=== PATIENT | male | born 1990 | race Caucasian/White ===

== ENCOUNTER 2017-08-06 15:08 | Emergency (ER) | payer SELFPAY ==
[~2017-08-06] VITALS: Ht 170.2 cm; Wt 61.2 kg
[~2017-08-06 15:08] MED LIST: ACHD5005 PO; AMOX500C2 PO; HYDR-3454 PO; HYDR1TAB PO; TRAM-21 PO; TRM50T PO
--- OUTSIDE RECORDS SUMMARY | 2017-08-06 15:14 | XMS REPORT | Continuity of Care Document ---
Author Author [facility] Organization [facility] Address Unknown Phone Unavailable Allergies Active Description Code Type Severity Reaction Onset Reported/Identified Relationship to Patient Clinical Status Yes No known drug allergies ND N/A N/A Medications Problems Date Dx Coded Attending Type Code Diagnosis Diagnosed By 12/12/2008 558.9 OTHER AND UNSPECIFIED NONINFECTIOUS GASTROENTERITIS AND COLITIS 12/12/2008 JOSE L RYAN DO 558.9 OTHER AND UNSPECIFIED NONINFECTIOUS GASTROENTERITIS AND COLITIS 12/12/2008 TAMMI URRUTIA APRN 558.9 OTHER AND UNSPECIFIED NONINFECTIOUS GASTROENTERITIS AND COLITIS 01/23/2009 682.9 CELLULITIS AND ABSCESS OF UNSPECIFIED SITES 01/23/2009 JOSE L RYAN DO 682.9 CELLULITIS AND ABSCESS OF UNSPECIFIED SITES 01/23/2009 TAMMI URRUTIA APRN 682.9 CELLULITIS AND ABSCESS OF UNSPECIFIED SITES 07/05/2012 V69.2 HIGH-RISK SEXUAL BEHAVIOR 07/05/2012 JOSE L RYAN DO V69.2 HIGH-RISK SEXUAL BEHAVIOR 07/05/2012 TAMMI URRUTIA APRN V69.2 HIGH-RISK SEXUAL BEHAVIOR 12/29/2012 805.6 CLOSED FRACTURE OF SACRUM AND COCCYX WITHOUT SPINAL CORD INJURY 12/29/2012 JOSE L RYAN DO 805.6 CLOSED FRACTURE OF SACRUM AND COCCYX WITHOUT SPINAL CORD INJURY 12/29/2012 TAMMI URRUTIA APRN 805.6 CLOSED FRACTURE OF SACRUM AND COCCYX WITHOUT SPINAL CORD INJURY 09/23/2014 TAMMI URRUTIA APRN V74.5 STD SCREEN Procedures Code [place] [address] ROUTINE VENIPUNCTURE 09/23/2014 27641 SYPHILLIS-[facility] 09/23/2014 69510 HIV ([facility]) 09/23/2014 44569 HEP C ANTIBODY ([facility]) 09/23/2014 08772 GC/CHLAM URINE (STATE) 09/23/2014 Results Encounters ACCT No. Visit Date/Time Discharge Status Pt. Type Provider Facility Loc./Unit Complaint [id number] 09/30/2013 05:32:00 2012 05:54:00 DIS Emergency [id number] 12/27/2013 17:52:00 12/27/2013 17 :52:00 CAN Outpatient YINKA SNOWDEN [facility] VÍCTOR [id number] 09/23/2014 09:20:00 09/23/2014 23: 59:59 CLS Outpatient TAMMI URRUTIA APRN [id number] 2013 08:10:00 2013 23: 59:59 CLS Outpatient JOSE L RYAN DO [id number] 12/29/2012 14:00:00 12/29/2012 23: 59:59 CLS Outpatient
--- NOTE | 2017-08-06 15:25 | ED GU-Male ---
General Chief Complaint: Abdominal/GI Problems Stated Complaint: HERNIA Source: patient Exam Limitations: no limitations History of Present Illness Time seen by provider: 15:23 Initial Comments To ER with reports of possible hernia in the left groin. He first noticed this about 2 days ago and had been lifting but didn't feel anything in the way of bulging or pain or tearing sensation at the time. States that his girlfriend looked it up and reports that this might have been a hernia. Also, he would like to be tested for sexually transmitted diseases because he was recently with a girl who had a new diagnosis of herpes. He states that he has no dysuria , no genital sores or discharge. He does report that he has had some testicular tenderness stating "it felt like blue balls" but he currently denies any pain. Timing/Duration: just prior to arrival Severity/Quality: moderate Location: groin Radiation: none Activities at Onset: none Associated Symptoms: denies symptoms Allergies and Home Medications Allergies Coded Allergies: No Known Drug Allergies (Unverified Allergy, Mild, 04/05/09) Home Medications No Active Prescriptions or Reported Meds Constitutional: see HPI, No chills, No fever EENTM: see HPI Respiratory: no symptoms reported Cardiovascular: no symptoms reported Genitourinary: no symptoms reported Musculoskeletal: no symptoms reported Skin: see HPI Psychiatric/Neurological: No Symptoms Reported Endocrine: No Symptoms Reported Past Ymesrzj-Klxoqu-Avosrl Hx Patient Social History Recent Foreign Travel: No Contact w/Someone Who Travel: No Reproductive System Hx Reproductive Disorders: No Sexually Transmitted Disease: No Psychosocial Behavioral Health Disorders: ADD/ADHD Physical Exam Vital Signs Vital Sign - Last 12Hours 08/06/17 15:15 Temp 98.0 Pulse 56 Resp 18 B/P (MAP) 119/70 Pulse Ox 98 Capillary Refill : General Appearance: WD/WN, no apparent distress HEENT: PERRL/EOMI, normal ENT inspection Neck: non-tender, full range of motion Respiratory: no respiratory distress, no accessory muscle use Gastrointestinal: non tender, soft Male: normal genitalia, inguinal tenderness (2cm mobile tender lymph node. ) Extremities: normal range of motion, non-tender Neurologic/Psychiatric: alert, normal mood/affect, oriented x 3 Skin: normal color, warm/dry Progress/Results/Core Measures Results/Orders Lab Results Laboratory Tests Test 08/06/17 15:21 Range/Units Urine Color YELLOW Urine Clarity CLEAR Urine pH 7 5-9 Urine Specific [place] 1.010 L 1.016-1.022 Urine Protein NEGATIVE NEGATIVE Urine Glucose (UA) NEGATIVE NEGATIVE Urine Ketones NEGATIVE NEGATIVE Urine Nitrite NEGATIVE NEGATIVE Urine Bilirubin NEGATIVE NEGATIVE Urine Urobilinogen NORMAL NORMAL MG/DL Urine Leukocyte Esterase NEGATIVE NEGATIVE Urine RBC (Auto) NEGATIVE NEGATIVE Urine RBC NONE /HPF Urine WBC NONE /HPF Urine Squamous Epithelial Cells 0-2 /HPF Urine Crystals NONE /LPF Urine Bacteria NONE /HPF Urine Casts NONE /LPF Urine Mucus NEGATIVE /LPF Urine Culture Indicated NO My Orders Orders - LAMONTE GROVER APRN Ua Culture If Indicated (08/06/17 15:21) Us Soft Tissue Unlisted [id number] (08/06/17 15:21) Chlamydia Dna Urine Test (08/06/17 15:21) Vital Signs/I&O Vital Sign - Last 12Hours 08/06/17 15:15 Temp 98.0 Pulse 56 Resp 18 B/P (MAP) 119/70 Pulse Ox 98 Departure Communication (Admissions) Progress Notes I did discuss with the patient possibility of this representing an STD and that we would call him if the gonorrhea or chlamydia came back positive. Impression Impression: Primary Impression: Inguinal lymphadenopathy Disposition: 01 HOME, SELF-CARE Condition: Stable Departure-Patient Inst. Decision time for Depature: 16:14 Referrals: [facility] (PCP/Family) Primary Care Physician Patient Instructions: LYMPH NODE SWELLING Add. Discharge Instructions: All discharge instructions reviewed with patient and/or family. Voiced understanding. Scripts No Active Prescriptions or Reported Meds LAMONTE GROVER APRN Aug 06, 2017 15:25
[2017-08-06 15:30] LABS: BILIRUBIN,URINE NEGATIVE (NEGATIVE); KETONES,URINE NEGATIVE (NEGATIVE); LEUKOCYTE ESTERASE ,URINE NEGATIVE (NEGATIVE); NITRITE,URINE NEGATIVE (NEGATIVE); PH,URINE 7 (5-9); PROTEIN,URINE NEGATIVE (NEGATIVE); UROBILINOGEN,URINE NORMAL (NORMAL)
[2017-08-06 15:38] LABS: SQUAMOUS EPITHELIAL CELL,UR 0-2 /HPF
[2017-08-06 16:19] VITALS: BP 119/70
--- NOTE | 2017-08-06 16:48 | Diagnostic Imaging Report ---
EXAMINATION: Lower extremity soft tissue sonogram. INDICATION: Left groin lump. FINDINGS: Grayscale imaging of the left inguinal region demonstrates mild prominent lymph nodes in the left groin with the largest measuring 1.9 cm. IMPRESSION: Left inguinal lymphadenopathy. While the findings could be reactive in nature, consider reassessment if a persistent or progressive finding. Dictated by: Dictated on workstation # [id number]
[2017-08-09 15:53] LABS: CHLAMYDIA DNA URINE Not Detected (Not Detected)
[2017-08-09 16:15] LABS: NEISSERIA GONORRHEA DNA URINE Not Detected (Not Detected)
== END 2017-08-06 16:19 | disposition home or self-care (01) ==
LOC: EDUNIT# 15:08 → ER 15:10
DX: R59.0 Localized enlarged lymph nodes (principal); F90.9 Attention-deficit hyperactivity disorder, unspecified type
CPT/HCPCS: 36415; 76999; 81000; 87491; 87591; 99282

== ENCOUNTER 2019-07-14 01:16 | Emergency (ER) | payer MEDICAID, OTHER | END 2019-07-14 03:26 | disposition left against medical advice (07) | LOC: ER 01:16 ==

== ENCOUNTER 2019-11-17 22:03 | Emergency (ER) | payer MEDICAID ==
[~2019-11-17] VITALS: Ht 175 cm; Wt 81.0 kg
--- NOTE | 2019-11-17 22:36 | ED Integumentary General ---
General Chief Complaint: Skin/Wound Problems Stated Complaint: LUMP ON NECK, CONGESTION, COUGH Nursing Triage Note: PATIENT COMPLAINT OF ABSCESS ON LEFT NECK. STATES X4 DAYS OPENED TODAY. PATIENT STATES HE ALSO HAS A COUGH AND SORE THROAT Source: patient Exam Limitations: no limitations History of Present Illness Date Seen by Provider: Nov 17, 2019 Time Seen by Provider: 22:29 Initial Comments To ER with c/o abscess on left neck, opened and drained a few days ago at home, also sore throat and cough that is keeping him up at night. Severity: moderate Location: torso Associated Symptoms: sore throat Allergies and Home Medications Allergies Coded Allergies: No Known Drug Allergies (Unverified Allergy, Mild, 04/05/09) Home Medications No Active Prescriptions or Reported Meds Patient Home Medication List Home Medication List Reviewed: Yes Review of Systems Review of Systems Constitutional: see HPI EENTM: nose congestion, throat pain Respiratory: no symptoms reported Cardiovascular: no symptoms reported Genitourinary: no symptoms reported Musculoskeletal: no symptoms reported Skin: no symptoms reported Psychiatric/Neurological: No Symptoms Reported Endocrine: No Symptoms Reported Hematologic/Lymphatic: No Symptoms Reported Past Rtgfqnv-Ioqdwc-Tihzjg Hx Patient Social History Alcohol Use: Denies Use Alcohol Beverage of Choice: Whiskey Recreational Drug Use: Yes Drug of Choice: THC Smoking Status: Current Everyday Smoker Type Used: Cigarettes 2nd Hand Smoke Exposure: Yes Recent Foreign Travel: No Contact w/Someone Who Travel: No Recent Infectious Disease Expo: No Recent Hopitalizations: No Physical Abuse: No Sexual Abuse: No Mistreated: No Fear: No Immunizations Up To Date Tetanus Booster (TDap): Less than 5yrs Seasonal Allergies Seasonal Allergies: No Past Medical History Surgeries: No Respiratory: No Cardiac: No Neurological: No Reproductive Disorders: No Sexually Transmitted Disease: No Gastrointestinal: No Musculoskeletal: No Endocrine: No Cancer: No Psychosocial: Yes ADD/ADHD Integumentary: No Blood Disorders: No Family Medical History No Pertinent Family Hx Physical Exam Vital Signs Vital Signs - First Documented 11/17/19 22:13 Temp 36.7 Pulse 117 Resp 18 B/P (MAP) 112/82 (92) Pulse Ox 97 O2 Delivery Room Air Capillary Refill : Less Than 3 Seconds General Appearance: WD/WN, no apparent distress HEENT: PERRL/EOMI, normal ENT inspection Respiratory: no respiratory distress, no accessory muscle use Neurologic/Psychiatric: alert, normal mood/affect, oriented x 3 Skin: normal color, warm/dry Skin Problem Location: neck (Demeter area of erythema and induration to the inferior aspect of the mandible on the left.) Progress/Results/Core Measures Results/Orders Vital Signs/I&O 11/17/19 22:13 Temp 36.7 Pulse 117 Resp 18 B/P (MAP) 112/82 (92) Pulse Ox 97 O2 Delivery Room Air Blood Pressure Mean: 92 Departure Impression Primary Impression: Abscess Disposition: HOME, SELF-CARE Condition: Stable Departure-Patient Inst. Decision time for Depature: 22:37 Referrals: NO,LOCAL PHYSICIAN (PCP/Family) Primary Care Physician Patient Instructions: Cough in Adults, Skin Abscess Add. Discharge Instructions: 1. Antibiotics and cough medication as directed. Follow-up with your doctor next week All discharge instructions reviewed with patient and/or family. Voiced understanding. Scripts Doxycycline Hyclate (Doxycycline Hyclate) 100 Mg Tablet 100 MG PO BID, #14 TAB 0 Refills Prov: LAMONTE GROVER APRN 11/17/19 LAMONTE GROVER APRN Nov 17, 2019 22:36
[2019-11-17] MEDS ORDERED: DOXY100T2 PO (22:39)
[2019-11-17] MEDS ORDERED: RX-ACETAMINOPHEN/CODEINE TAB PPK #4 PO SCH (22:45)
[2019-11-17] MEDS ORDERED: DOXYCYCLINE 100 MG (VIBRAMYCIN) TABLET PO SCH (22:45)
[2019-11-17 22:46] VITALS: BP 112/82
== END 2019-11-17 22:47 | disposition home or self-care (01) ==
LOC: EDUNIT# 22:03 → ER 22:05
DX: L02.11 Cutaneous abscess of neck (principal); F17.210 Nicotine dependence, cigarettes, uncomplicated
CPT/HCPCS: 99283

== ENCOUNTER 2020-05-30 18:10 | Emergency (ER) | payer MEDICAID ==
[~2020-05-30] VITALS: Ht 175 cm; Wt 65.0 kg
[~2020-05-30 18:10] MED LIST changes: +DOXY100T2 PO
[2020-05-30] MEDS ORDERED: CEPH-507 PO (18:39)
--- NOTE | 2020-05-30 18:39 | ED Upper Extremity ---
General Chief Complaint: Upper Extremity Stated Complaint: L WRIST LAC Nursing Triage Note: THE PT IS AMBULATORY TO THE ROOM WITHOUT DIFFICULTY. NO DISTRESS IS SEEN ON ARRIVAL. LOC IS NORMAL FOR THE PT. THERE IS A 3.5 IN LACERATION TO THE LEFT WRIST. BLEEDING IS CONTROLLED ON ARRIVAL. Nursing Sepsis Screen: No Definite Risk Source: patient Exam Limitations: no limitations History of Present Illness Date Seen by Provider: May 30, 2020 Time Seen by Provider: 18:34 Initial Comments lac to volar left wrist. Was cutting a string on his backpack at 1200 when his knife slipped. Tetanus UTD. Onset: just prior to arrival Severity: moderate Pain/Injury Location: left wrist Method of Injury: unknown Modifying Factors: Worse With Movement Allergies and Home Medications Allergies Coded Allergies: No Known Drug Allergies (Unverified Allergy, Mild, 04/05/09) Home Medications Doxycycline Hyclate 100 Mg Tablet, 100 MG PO BID Prescribed by: LAMONTE GROVER on 11/17/19 7865 Patient Home Medication List Home Medication List Reviewed: Yes Review of Systems Constitutional: see HPI EENTM: see HPI Respiratory: no symptoms reported Cardiovascular: no symptoms reported Genitourinary: no symptoms reported Musculoskeletal: see HPI Skin: no symptoms reported Past Qpzfjwt-Imbani-Ncsfgy Hx Patient Social History Alcohol Beverage of Choice: Whiskey Drug of Choice: THC Type Used: Cigarettes 2nd Hand Smoke Exposure: Yes Recent Foreign Travel: No Contact w/Someone Who Travel: No Recent Infectious Disease Expo: No Recent Hopitalizations: No Physical Abuse: No Sexual Abuse: No Mistreated: No Fear: No Immunizations Up To Date Tetanus Booster (TDap): Less than 5yrs Seasonal Allergies Seasonal Allergies: No Past Medical History Surgeries: No Respiratory: No Cardiac: No Neurological: No Reproductive Disorders: No Sexually Transmitted Disease: No Gastrointestinal: No Musculoskeletal: No Endocrine: No Cancer: No Psychosocial: Yes ADD/ADHD Integumentary: No Blood Disorders: No Family Medical History No Pertinent Family Hx Physical Exam Vital Signs Vital Signs - First Documented 05/30/20 18:20 Temp 36.5 Pulse 80 Resp 16 B/P (MAP) 117/84 (95) Pulse Ox 97 Capillary Refill : Less Than 3 Seconds Height, Weight, BMI Height: 5'7.00" Weight: 127lbs. oz. 57.519406zl; 21.00 BMI Method:Stated General Appearance: WD/WN, no apparent distress Respiratory: no respiratory distress, no accessory muscle use Shoulder: normal inspection, non-tender Elbow/Forearm: normal inspection, non-tender, Left Wrist: Yes limited ROM (2.5cm lac to flexor tendons with partial laceration of one of the flexor tendons. He is able to flex the wrist and each finger individually. Reports tingling in the hand. this was anesthetized with 3ml of 1% lidocaine with epi, scrubbed with chlorxedine/saline and irrigated with same. Closed with 1 continuous suture size 5-0 prolene. Placed in a bandage and a volar wrist splint, will giuve follw up for ortho. ) Neurologic/Tendon: normal sensation, normal motor functions Neurologic/Psychiatric: alert, normal mood/affect, oriented x 3 Skin: normal color, warm/dry Progress/Results/Core Measures Results/Orders Vital Signs/I&O 05/30/20 18:20 Temp 36.5 Pulse 80 Resp 16 B/P (MAP) 117/84 (95) Pulse Ox 97 Blood Pressure Mean: 95 Departure Impression Primary Impression: Wrist laceration Qualified Codes: S61.512A - Laceration without foreign body of left wrist, initial encounter Disposition: HOME, SELF-CARE Condition: Stable Departure-Patient Inst. Decision time for Depature: 18:38 Referrals: NO,LOCAL PHYSICIAN (PCP) Primary Care Physician ELIUD ODONNELL MD, MICHAEL P MD Patient Instructions: Laceration Repair With Stitches (DC) Add. Discharge Instructions: return to er for suture removal in 10 days. Call one of the orthopedists for follow up on Monday. Keep the splint on at all times. Take the antibiotic as directed. Return to Er for any worsening. All discharge instructions reviewed with patient and/or family. Voiced understanding. Scripts Cephalexin (Keflex) 500 Mg Capsule 500 MG PO TID, #15 CAP Prov: LAMONTE GROVER APRN 05/30/20 LAMONTE GROVER APRN May 30, 2020 18:39
[2020-05-30 18:44] VITALS: BP 117/84
== END 2020-05-30 18:44 | disposition home or self-care (01) ==
LOC: EDUNIT# 18:10 → ER 18:12
DX: S61.512A Laceration without foreign body of left wrist, initial encounter (principal); Z77.22 Contact with and (suspected) exposure to environmental tobacco smoke (acute) (chronic); W26.0XXA Contact with knife, initial encounter

== ENCOUNTER 2020-10-14 20:33 | Emergency (ER) | payer MEDICAID ==
[~2020-10-14] VITALS: Ht 170 cm; Wt 65.0 kg
[~2020-10-14 20:33] MED LIST changes: +CEPH-507 PO
[2020-10-14 20:43] VITALS: BP 126/84
[2020-10-14] MEDS ORDERED: SULF1TAB35 PO (20:49)
--- NOTE | 2020-10-14 20:49 | ED Integumentary General ---
General Stated Complaint: POSS ABSCESS ON RIGHT ELBOW Source: patient Exam Limitations: no limitations History of Present Illness Date Seen by Provider: Oct 14, 2020 Time Seen by Provider: 20:43 Initial Comments Patient presents ER by private conveyance with chief complaint that today he woke up with a little red welt that was painful tender to the touch over his right elbow. He did not see any insect bite him. He suspects it was a spider bite. He took a couple doses of his girlfriends leftover antibiotics that she was using for a UTI and it did not make it go away. Allergies and Home Medications Allergies Coded Allergies: No Known Drug Allergies (Unverified Allergy, Mild, 04/05/09) Home Medications Cephalexin 500 Mg Capsule, 500 MG PO TID Prescribed by: LAMONTE GROVER on 05/30/201838 Doxycycline Hyclate 100 Mg Tablet, 100 MG PO BID Prescribed by: LAMONTE GROVER on 11/17/199 Patient Home Medication List Home Medication List Reviewed: Yes Review of Systems Review of Systems Constitutional: No chills, No diaphoresis EENTM: No ear discharge, No ear pain Respiratory: No cough, No short of breath Cardiovascular: No chest pain, No palpitations Past Qncjpuq-Qkxvly-Uhlygo Hx Patient Social History Alcohol Use: Occasionally Uses Alcohol Beverage of Choice: Whiskey Recreational Drug Use: Yes Drug of Choice: THC Smoking Status: Current Everyday Smoker Type Used: Cigarettes 2nd Hand Smoke Exposure: Yes Recent Foreign Travel: No Contact w/Someone Who Travel: No Recent Hopitalizations: No Immunizations Up To Date Tetanus Booster (TDap): Less than 5yrs Seasonal Allergies Seasonal Allergies: No Past Medical History Surgeries: No Respiratory: No Cardiac: No Neurological: No Reproductive Disorders: No Sexually Transmitted Disease: No Gastrointestinal: No Musculoskeletal: No Endocrine: No Cancer: No Psychosocial: Yes ADD/ADHD Integumentary: No Blood Disorders: No Family Medical History No Pertinent Family Hx Physical Exam Vital Signs Capillary Refill : General Appearance: WD/WN, no apparent distress HEENT: PERRL/EOMI, pharynx normal Neck: full range of motion, normal inspection Cardiovascular: normal peripheral pulses, regular rate, rhythm Respiratory: no respiratory distress, no accessory muscle use Neurologic/Psychiatric: alert, normal mood/affect Skin: other (Erythematous tender mildly swollen but not indurated area over his right forearm proximal radius. There is a pointing hawkins) Progress/Results/Core Measures Progress Progress Note : Time: 20:47 Progress Note Plan to manny the hawkins using a needle cover with gauze and put him on Bactrim DS. Departure Impression Primary Impression: Abscess Disposition: 01 HOME, SELF-CARE Condition: Stable Departure-Patient Inst. Decision time for Depature: 20:48 Referrals: NO,LOCAL PHYSICIAN (PCP/Family) Primary Care Physician Patient Instructions: Abscess Incision and Drainage (DC) Add. Discharge Instructions: We opened the wound so it should start draining. Keep it clean with regular soap and water and encourage it to drain over the next day or so. mri supervisor the Bactrim and start taking 1 tablet twice a day for the next week. If your abscess goes away then just take the antibiotics for another day or 2 and you may quit them early. Tylenol and ibuprofen as necessary for pain. Warm moist compresses applied every couple hours as necessary for pain relief and to encourage the wound to drain. Scripts Sulfamethoxazole/Trimethoprim (Bactrim Ds Tablet) 1 Each Tablet 1 EACH PO BID for 7 Days, #14 TAB 0 Refills Prov: NAVNEET LOWE 10/14/20 NAVNEET LOWE Oct 14, 2020 20:49
== END 2020-10-14 20:54 | disposition home or self-care (01) ==
LOC: EDUNIT# 20:33 → ER 20:36
DX: L02.413 Cutaneous abscess of right upper limb (principal); F17.210 Nicotine dependence, cigarettes, uncomplicated
CPT/HCPCS: 99282

== ENCOUNTER 2020-10-17 17:20 | Emergency (ER) | payer MEDICAID ==
[~2020-10-17] VITALS: Ht 170 cm; Wt 61.4 kg
[~2020-10-17 17:20] MED LIST changes: +SULF1TAB35 PO
--- NOTE | 2020-10-17 17:53 | ED GU-Male ---
General Chief Complaint: General Problems/Pain Stated Complaint: L SIDE TESTICLE SWELLING Nursing Triage Note: c/o swollen testicle x 2 hours Source: patient Exam Limitations: no limitations History of Present Illness Date Seen by Provider: Oct 17, 2020 Time Seen by Provider: 17:51 Initial Comments ER with sudden onset of left testicular pain 2 hours ago. States that his "old lady" was here in the ER last week for urinary tract infection and he believes he might of caught it from her or testicular torsion. He has never had this before. No fevers chills nausea or vomiting. Timing/Duration: constant Severity/Quality: moderate Location: scrotal Radiation: none Activities at Onset: none Prior Genitourinary Problems: none Allergies and Home Medications Allergies Coded Allergies: No Known Drug Allergies (Unverified Allergy, Mild, 04/05/09) Home Medications Cephalexin 500 Mg Capsule, 500 MG PO TID Prescribed by: LAMONTE GROVER on 05/30/20 1839 Doxycycline Hyclate 100 Mg Tablet, 100 MG PO BID Prescribed by: LAMONTE GROVER on 11/17/199 Sulfamethoxazole/Trimethoprim 1 Each Tablet, 1 EACH PO BID Prescribed by: NAVNEET LOWE on 10/14/202048 Patient Home Medication List Home Medication List Reviewed: Yes Review of Systems Review of Systems Constitutional: see HPI EENTM: see HPI Respiratory: no symptoms reported Cardiovascular: no symptoms reported Genitourinary: see HPI Musculoskeletal: no symptoms reported Skin: no symptoms reported Psychiatric/Neurological: No Symptoms Reported Endocrine: No Symptoms Reported Hematologic/Lymphatic: No Symptoms Reported Past Xbdgsuv-Jwgycw-Sujbme Hx Patient Social History Alcohol Use: Denies Use Number of Drinks Today: GG Alcohol Beverage of Choice: Whiskey Recreational Drug Use: Yes Drug of Choice: THC Type Used: Cigarettes 2nd Hand Smoke Exposure: Yes Recent Foreign Travel: No Contact w/Someone Who Travel: No Recent Infectious Disease Expo: No Recent Hopitalizations: No Immunizations Up To Date Tetanus Booster (TDap): Less than 5yrs Seasonal Allergies Seasonal Allergies: No Past Medical History Surgeries: No Respiratory: No Cardiac: No Neurological: No Reproductive Disorders: No Sexually Transmitted Disease: No Gastrointestinal: No Musculoskeletal: No Endocrine: No HEENT: No Cancer: No Psychosocial: Yes ADD/ADHD Integumentary: No Blood Disorders: No Family Medical History No Pertinent Family Hx Physical Exam Vital Signs Vital Signs - First Documented 10/17/20 17:31 Temp 37.0 Pulse 104 Resp 18 B/P (MAP) 118/81 (93) Pulse Ox 98 Capillary Refill : Less Than 3 Seconds Height, Weight, BMI Height: 5'7.00" Weight: 127lbs. oz. 57.503413hd; 21.00 BMI Method:Stated General Appearance: WD/WN, no apparent distress Neck: non-tender, full range of motion Respiratory: no respiratory distress, no accessory muscle use Gastrointestinal: normal bowel sounds, non tender, soft Male: testicular tenderness (Left testicular enlargement with tenderness of the epididymis and swelling of the epididymis.) Neurologic/Psychiatric: alert, normal mood/affect, oriented x 3 Skin: normal color, warm/dry Progress/Results/Core Measures Suspected Sepsis Recent Fever Within 48 Hours: No Infection Criteria Present: None New/Unexplained Altered Menta: No Sepsis Screen: No Definite Risk SIRS Temperature: Pulse: 104 Respiratory Rate: 18 Blood Pressure 118 /81 Mean: 93 Results/Orders My Orders Orders - LAMONTE GROVER APRN Ua Culture If Indicated (10/17/20 17:49) Neis Ramana Dna Urine Test (10/17/20 17:49) Chlamydia Trachomatis Urine (10/17/20 17:49) Hydrocodone/Apap 5/325 Tablet (Lortab 5 (10/17/20 18:00) Ceftriaxone For Im Use (Rocephin For Im (10/17/20 18:00) Azithromycin Tablet (Zithromax Tablet) (10/17/20 18:00) Lidocaine 1% Inj 20 Ml (Xylocaine 1% Inj (10/17/20 18:00) Drug Screen Stat (Urine) (10/17/20 17:58) Medications Given in ED Current Medications Medications Dose Ordered Sig/Henok Route Start Time Stop Time Status Last Admin Dose Admin Acetaminophen/ Hydrocodone Bitart 1 tab ONCE ONCE PO 10/17/20 18:00 10/17/20 18:01 DC 10/17/20 17:58 1 TAB Lidocaine HCl 2.1 ml ONCE ONCE INJ 10/17/20 18:00 10/17/20 18:01 DC 10/17/20 17:58 2.1 ML Vital Signs/I&O 10/17/20 17:31 Temp 37.0 Pulse 104 Resp 18 B/P (MAP) 118/81 (93) Pulse Ox 98 Capillary Refill : Less Than 3 Seconds Blood Pressure Mean: 93 Departure Communication (Admissions) I would suspect left epididymitis. However given the apparent sudden onset of this I am also unable to exclude torsion. We do not have ultrasound available here. I will transfer him to [place] by private vehicle. He has someone in route to pick him up. I discussed with him the importance of going. In the meantime we will give him a gram of Rocephin intramuscular, 1 g of azithromycin p.o., hydrocodone for pain. He reports that he is unable to provide us with a urine sample despite us asking 3-4 times. Impression Primary Impression: Testicular swelling, left Disposition: XFER SHT-TRM HOSP Condition: Stable Departure-Patient Inst. Referrals: NO,LOCAL PHYSICIAN (PCP/Family) Primary Care Physician LAMONTE GROVER APRN Oct 17, 2020 17:53
[2020-10-17] MEDS ORDERED: AZITHROMYCIN 250 MG TAB (ZITHROMAX) PO SCH (18:00)
[2020-10-17] MEDS ORDERED: LIDOCAINE 1% INJ 20 ML 20 ML VIAL INJ ONE (18:00)
[2020-10-17] MEDS ORDERED: HYDROcodone/APAP 5 MG/325 MG (LORTAB) TAB PO ONE (18:00)
[2020-10-17] MEDS ORDERED: cefTRIAXone 1,000 MG/2.86 ml vial (IM ONLY) IM SCH (18:00)
[2020-10-17 18:10] VITALS: BP 123/84
[2020-10-17 18:16] LABS: BILIRUBIN,URINE NEGATIVE (NEGATIVE); CLARITY,URINE CLOUDY; COLOR,URINE YELLOW; GLUCOSE, URINE (UA) NEGATIVE (NEGATIVE); KETONES,URINE NEGATIVE (NEGATIVE); LEUKOCYTE ESTERASE ,URINE 2+ (NEGATIVE); NITRITE,URINE NEGATIVE (NEGATIVE); PROTEIN,URINE 2+ (NEGATIVE)
[2020-10-17 18:25] LABS: BACTERIA,URINE MODERATE /HPF; URINE OTHER MOD SPERM /HPF; WBC,URINE TNTC /HPF
[2020-10-17 18:34] LABS: AMPHETAMINE SCREEN, URINE POSITIVE (NEGATIVE); BARBITURATE SCREEN URINE NEGATIVE (NEGATIVE); BENZODIAZEPINES SCREEN URINE NEGATIVE (NEGATIVE); CANNABINOID SCREEN, URINE POSITIVE (NEGATIVE); COCAINE SCREEN URINE NEGATIVE (NEGATIVE); METHADONE STAT NEGATIVE (NEGATIVE); METHAMPHETAMINE SCREEN URINE S POSITIVE (NEGATIVE); OPIATE SCREEN URINE NEGATIVE (NEGATIVE); OXYCODONE STAT NEGATIVE (NEGATIVE); PROPOXYPHENE STAT NEGATIVE (NEGATIVE); TRICYCLIC ANTIDEPRESSANTS SCRE NEGATIVE (NEGATIVE)
== END 2020-10-17 18:12 | disposition short-term general hospital (02) ==
LOC: EDUNIT# 17:20 → ER 17:22
DX: N50.89 Other specified disorders of the male genital organs (principal); Z77.22 Contact with and (suspected) exposure to environmental tobacco smoke (acute) (chronic)
CPT/HCPCS: 36415; 80306; 81000; 87077; 87088; 87491; 87591

== ENCOUNTER 2020-10-19 10:30 | Emergency (ER) | payer MEDICAID ==
[~2020-10-19] VITALS: Ht 170.1 cm; Wt 61.2 kg
[2020-10-19 11:22] LABS: BILIRUBIN,URINE NEGATIVE (NEGATIVE); CLARITY,URINE CLEAR; COLOR,URINE YELLOW; GLUCOSE, URINE (UA) 1+ (NEGATIVE); KETONES,URINE NEGATIVE (NEGATIVE); LEUKOCYTE ESTERASE ,URINE NEGATIVE (NEGATIVE); NITRITE,URINE NEGATIVE (NEGATIVE); PROTEIN,URINE TRACE (NEGATIVE)
[2020-10-19 11:43] LABS: BACTERIA,URINE TRACE /HPF; RBC,URINE RARE /HPF
[2020-10-19] MEDS ORDERED: DOXY100T2 PO (11:49)
--- NOTE | 2020-10-19 11:49 | Diagnostic Imaging Report ---
PROCEDURE: US Scrotum. TECHNIQUE: Multiple real-time grayscale images were obtained over the scrotum in various projections bilaterally. INDICATION: Pain. FINDINGS: The testicular parenchyma appeared symmetric and normal. No findings of testicular torsion or orchitis. There is some mild scrotal wall edema and thickening. The left epididymis is prominent hypoechoic and mildly hypervascular vascularized suspicious for mild left-sided epididymitis. There is a small simple appearing left-sided hydrocele without complexity, loculation or findings of pyocele. No abscess. IMPRESSION: Probable left epididymitis without orchitis or torsion, likely reactive small simple left hydrocele and mild scrotal wall edema. Dictated by: Dictated on workstation # [id number]
[2020-10-19] MEDS ORDERED: ACHD5005 PO (11:53)
--- NOTE | 2020-10-19 11:53 | ED GU-Male ---
General Chief Complaint: Male Reproductive Stated Complaint: TESTICLE SWELLING/PAINFUL Nursing Triage Note: Pt reports testicular pain and swelling that began on Monday afternoon. Pt reports girlfriend having a UTI, and pt believes this is what has caused symptoms. History of Present Illness Date Seen by Provider: Oct 19, 2020 Time Seen by Provider: 11:15 Initial Comments This is a 30 yo male who presented with c/o left testicular pain and swelling since Monday. Pain is 10/10, sharp, and localized to his left testicle. States he was given antibiotics last week for a UTI but he was unable to pick them up until Monday when his testicle became swollen. Denies fever, chills, cough, shortness of breath, nausea/vomiting, abdominal pain. Allergies and Home Medications Allergies Coded Allergies: No Known Drug Allergies (Unverified Allergy, Mild, 04/05/09) Home Medications Cephalexin 500 Mg Capsule, 500 MG PO TID Prescribed by: LAMONTE GROVER on 05/30/20 183 Doxycycline Hyclate 100 Mg Tablet, 100 MG PO BID Prescribed by: LAMONTE GROVER on 11/17/19 223 Doxycycline Hyclate 100 Mg Tablet, 100 MG PO BID Prescribed by: GUILLERMO VALENCIA on 10/19/20 1149 Hydrocodone/Acetaminophen 1 Each Tablet, 1 EACH PO Q4H Prescribed by: GUILLERMO VALENCIA on 10/19/20 1153 Sulfamethoxazole/Trimethoprim 1 Each Tablet, 1 EACH PO BID Prescribed by: NAVNEET LOWE on 10/14/202048 Patient Home Medication List Home Medication List Reviewed: Yes Review of Systems Review of Systems Constitutional: no symptoms reported EENTM: no symptoms reported Respiratory: no symptoms reported Cardiovascular: no symptoms reported Gastrointestinal: no symptoms reported Genitourinary: see HPI; denies burning, denies discharge, denies flank pain, d enies hematuria Musculoskeletal: no symptoms reported Skin: no symptoms reported Psychiatric/Neurological: No Symptoms Reported Endocrine: No Symptoms Reported Hematologic/Lymphatic: No Symptoms Reported Past Gpjedjf-Jjbuwj-Huxzos Hx Patient Social History Alcohol Use: Denies Use Number of Drinks Today: GG Alcohol Beverage of Choice: Whiskey Recreational Drug Use: Yes Drug of Choice: THC Smoking Status: Current Everyday Smoker Type Used: Cigarettes 2nd Hand Smoke Exposure: Yes Recent Foreign Travel: No Contact w/Someone Who Travel: No Recent Infectious Disease Expo: No Recent Hopitalizations: No Immunizations Up To Date Tetanus Booster (TDap): Less than 5yrs Seasonal Allergies Seasonal Allergies: No Past Medical History Surgeries: No Respiratory: No Cardiac: No Neurological: No Reproductive Disorders: No Sexually Transmitted Disease: No Gastrointestinal: No Musculoskeletal: No Endocrine: No HEENT: No Cancer: No Psychosocial: Yes ADD/ADHD Integumentary: No Blood Disorders: No Family Medical History No Pertinent Family Hx Physical Exam Vital Signs Vital Signs - First Documented 10/19/20 10/19/20 11:10 12:19 Temp 36.9 Pulse 97 Resp 20 B/P (MAP) 119/78 (92) Pulse Ox 98 O2 Delivery Room Air Capillary Refill : Less Than 3 Seconds Height, Weight, BMI Height: 5'7.00" Weight: 127lbs. oz. 57.158208eo; 21.00 BMI Method:Stated General Appearance: WD/WN, no apparent distress HEENT: PERRL/EOMI, pharynx normal Neck: full range of motion, normal inspection Cardiovascular: regular rate, rhythm, no murmur Respiratory: lungs clear, normal breath sounds Gastrointestinal: normal bowel sounds, non tender, soft Male: No erythema; testicular tenderness (left testicle tenderness, + cremasteric reflxes bilaterally, +Prehn's on left testicle ) Back: normal inspection Extremities: normal range of motion, normal inspection, normal capillary refill Neurologic/Psychiatric: no motor/sensory deficits, alert, normal mood/affect, o riented x 3 Skin: normal color, warm/dry Progress/Results/Core Measures Suspected Sepsis Recent Fever Within 48 Hours: No Infection Criteria Present: None New/Unexplained Altered Menta: No Sepsis Screen: No Definite Risk SIRS Temperature: Pulse: 97 Respiratory Rate: 20 Laboratory Tests 10/19/20 11:47: White Blood Count 12.5H Blood Pressure 119 /78 Mean: 92 Laboratory Tests 10/19/20 11:47: Creatinine 0.84, Platelet Count 307, Total Bilirubin 0.2 Results/Orders Lab Results Laboratory Tests Test 10/19/20 11:00 10/19/20 11:47 Range/Units Urine Color YELLOW Urine Clarity CLEAR Urine pH 6.0 5-9 Urine Specific [place] >=1.030 1.016-1.022 Urine Protein TRACE H NEGATIVE Urine Glucose (UA) 1+ H NEGATIVE Urine Ketones NEGATIVE NEGATIVE Urine Nitrite NEGATIVE NEGATIVE Urine Bilirubin NEGATIVE NEGATIVE Urine Urobilinogen 2.0 < = 1.0 MG/DL Urine Leukocyte Esterase NEGATIVE NEGATIVE Urine RBC (Auto) NEGATIVE NEGATIVE Urine RBC RARE /HPF Urine WBC 5-10 H /HPF Urine Crystals NONE /LPF Urine Bacteria TRACE /HPF Urine Casts NONE /LPF Urine Mucus SMALL H /LPF Urine Culture Indicated NO White Blood Count 12.5 H 4.3-11.0 10^3/uL Red Blood Count 4.14 L 4.30-5.52 10^6/uL Hemoglobin 12.7 L 13.3-17.7 g/dL Hematocrit 37 L 40-54 % Mean Corpuscular Volume 90 80-99 fL Mean Corpuscular Hemoglobin 31 25-34 pg Mean Corpuscular Hemoglobin Concent 34 32-36 g/dL Red Cell Distribution Width 12.1 10.0-14.5 % Platelet Count 307 130-400 10^3/uL Mean Platelet Volume 8.7 L 9.0-12.2 fL Immature Granulocyte % (Auto) 0 % Neutrophils (%) (Auto) 93 H 42-75 % Lymphocytes (%) (Auto) 5 L 12-44 % Monocytes (%) (Auto) 1 0-12 % Eosinophils (%) (Auto) 0 0-10 % Basophils (%) (Auto) 0 0-10 % Neutrophils # (Auto) 11.6 H 1.8-7.8 10^3/uL Lymphocytes # (Auto) 0.7 L 1.0-4.0 10^3/uL Monocytes # (Auto) 0.1 0.0-1.0 10^3/uL Eosinophils # (Auto) 0.0 0.0-0.3 10^3/uL Basophils # (Auto) 0.0 0.0-0.1 10^3/uL Immature Granulocyte # (Auto) 0.0 0.0-0.1 10^3/uL Neutrophils % (Manual) 88 % Lymphocytes % (Manual) 10 % Monocytes % (Manual) 1 % Eosinophils % (Manual) 0 % Basophils % (Manual) 0 % Band Neutrophils 1 % Blood Morphology Comment NORMAL Sodium Level 138 135-145 MMOL/L Potassium Level 4.2 3.6-5.0 MMOL/L Chloride Level 104 98-107 MMOL/L Carbon Dioxide Level 27 21-32 MMOL/L Anion Gap 7 5-14 MMOL/L Blood Urea Nitrogen 18 7-18 MG/DL Creatinine 0.84 0.60-1.30 MG/DL Estimat Glomerular Filtration Rate > 60 BUN/Creatinine Ratio 21 Glucose Level 187 H 70-105 MG/DL Calcium Level 8.9 8.5-10.1 MG/DL Corrected Calcium 8.8 8.5-10.1 MG/DL Total Bilirubin 0.2 0.1-1.0 MG/DL Aspartate Amino Transf (AST/SGOT) 29 5-34 U/L Alanine Aminotransferase (ALT/SGPT) 17 0-55 U/L Alkaline Phosphatase 88 40-136 U/L Total Protein 7.5 6.4-8.2 GM/DL Albumin 4.1 3.2-4.5 GM/DL My Orders Orders - GUILLERMO VALENCIA APRN Cbc With Automated Diff (10/19/20 11:31) Comprehensive Metabolic Panel (10/19/20 11:31) Chlamydia Trachomatis Urine (10/19/20 11:31) Neis Ramana Dna Urine Test (10/19/20 11:31) Hydrocodone/Apap 5/325 Tablet (Lortab 5 (10/19/20 12:00) Doxycycline Hyclate Tablet (Vibramycin T (10/19/20 12:00) Manual Differential (10/19/20 11:47) Vital Signs/I&O 10/19/20 10/19/20 11:10 12:19 Temp 36.9 36.9 Pulse 97 97 Resp 20 20 B/P (MAP) 119/78 (92) 119/78 (92) Pulse Ox 98 98 O2 Delivery Room Air Capillary Refill : Less Than 3 Seconds Blood Pressure Mean: 92 Progress Note : Progress Note Upon arrival initial concern is for torsion and US was ordered. Was able to review prior records and he was noted to be in ED on 10/17 with same complaint. He was transferred to [facility] via [facility] for testicular US. Discussed this with him, and he reports he did have US completed. US neg for torsion, but shows left epididymitis. Discussed these findings with him and the importance of wearing supportive underwear and taking antibiotics. Instructed to Stop Bactrim and a new prescription for Doxycycline was provided. Given Marianela-tab for pain. Reviewed discharge POC and he is agreeable with plan. Diagnostic Imaging Diagonstic Imaging: Ultrasound Plain Films/CT/US/NM/MRI: other (testicles) Comments NAME: CARYN SP[facility] REC#: [id number] PT STATUS: DEP ER : 1990 PHYSICIAN: ELIZABETH KAUFFMAN MD ADMIT DATE: 10/19/20/ER Signed Date of Exam:10/19/20 US SCROTUM (Testicle) [id number] PROCEDURE: US Scrotum. TECHNIQUE: Multiple real-time grayscale images were obtained over the scrotum in various projections bilaterally. INDICATION: Pain. FINDINGS: The testicular parenchyma appeared symmetric and normal. No findings of testicular torsion or orchitis. There is some mild scrotal wall edema and thickening. The left epididymis is prominent hypoechoic and mildly hypervascular vascularized suspicious for mild left-sided epididymitis. There is a small simple appearing left-sided hydrocele without complexity, loculation or findings of pyocele. No abscess. IMPRESSION: Probable left epididymitis without orchitis or torsion, likely reactive small simple left hydrocele and mild scrotal wall edema. Dictated by: Dictated on workstation # [id number] Dict: 10/19/20 1142 Trans: 10/19/20 1239 [id number] Interpreted by: JOSEY MELGAR Electronically signed by: JOSEY MELGAR 10/19/20 1239 Departure Impression Primary Impression: Epididymitis, left Disposition: 01 HOME, SELF-CARE Condition: Stable/Unchanged Departure-Patient Inst. Decision time for Depature: 11:51 Referrals: NO,LOCAL PHYSICIAN (PCP/Family) Primary Care Physician Patient Instructions: Epididymitis (DC) Add. Discharge Instructions: Plan: Plan: 1. Discharge home. Take your antibiotics as directed and complete full course. 2. May take Lortab 5mg by mouth as needed for pain every 4-6 hours. 3. Wear supportive underwear and avoid wearing boxers. 4. Use towel or pillow case for testicular support. 5. Follow up with your primary care provider if your symptoms persist. 6. Return for any new or concerning symptoms. All discharge instructions reviewed with patient and/or family. Voiced understanding. Scripts Hydrocodone/Acetaminophen (Hydrocodone-Acetamin 5-325 mg) 1 Each Tablet 1 EACH PO Q4H, #10 TAB 0 Refills Prov: GUILLERMO VALENCIA PATTERN WORKER 10/19/20 Doxycycline Hyclate (Doxycycline Hyclate) 100 Mg Tablet 100 MG PO BID for 10 Days, #20 TAB 0 Refills Prov: GUILLERMO VALENCIA APRN 10/19/20 GUILLERMO VALENCIA APRN Oct 19, 2020 11:53
[2020-10-19 11:56] LABS: BASOPHILS % (AUTO) 0 % (0-10); EOSINOPHILS % (AUTO) 0 % (0-10); HEMATOCRIT 37 % (40-54); HEMOGLOBIN 12.7 g/dL (13.3-17.7); LYMPHOCYTES # (AUTO) 0.7 10^3/uL (1.0-4.0); LYMPHOCYTES % (AUTO) 5 % (12-44); MEAN CORPUSCULAR HEMOGLOBIN 31 pg (25-34); MEAN CORPUSCULAR HGB CONC 34 g/dL (32-36); MEAN CORPUSCULAR VOLUME 90 fL (80-99); MEAN PLATELET VOLUME 8.7 fL (9.0-12.2); MONOCYTES # (AUTO) 0.1 10^3/uL (0.0-1.0); MONOCYTES % (AUTO) 1 % (0-12); NEUTROPHILS # (AUTO) 11.6 10^3/uL (1.8-7.8); NEUTROPHILS % (AUTO) 93 % (42-75); PLATELET COUNT 307 10^3/uL (130-400); WHITE BLOOD COUNT 12.5 10^3/uL (4.3-11.0)
[2020-10-19] MEDS ORDERED: HYDROcodone/APAP 5 MG/325 MG (LORTAB) TAB PO ONE (12:00)
[2020-10-19] MEDS ORDERED: DOXYCYCLINE 100 MG (VIBRAMYCIN) TABLET PO ONE (12:00)
[2020-10-19 12:13] LABS: ALANINE AMINOTRANSFERASE 17 U/L (0-55); ALBUMIN 4.1 GM/DL (3.2-4.5); ALKALINE PHOSPHATASE 88 U/L (40-136); BILIRUBIN,TOTAL 0.2 MG/DL (0.1-1.0); BUN/CREATININE RATIO 21; CALCIUM 8.9 MG/DL (8.5-10.1); CARBON DIOXIDE 27 MMOL/L (21-32); CHLORIDE 104 MMOL/L (98-107); CREATININE SERUM 0.84 MG/DL (0.60-1.30); GFR ESTIMATED > 60; GLUCOSE 187 MG/DL (70-105); POTASSIUM 4.2 MMOL/L (3.6-5.0); SODIUM 138 MMOL/L (135-145); TOTAL PROTEIN 7.5 GM/DL (6.4-8.2)
--- NOTE | 2020-10-19 12:17 | NUR ---
Pt refused meds and didn't want to wait on lab results. Pt DCd by Yoanna.
[2020-10-19 12:18] LABS: BAND NEUTROPHILS 1 %; BASOPHILS % (MANUAL) 0 %; EOSINOPHILS % (MANUAL) 0 %; LYMPHOCYTES % (MANUAL) 10 %; MONOCYTES % (MANUAL) 1 %; NEUTROPHILS % (MANUAL) 88 %; RBC MORPH NORMAL
[2020-10-19 12:19] VITALS: BP 119/78
== END 2020-10-19 12:20 | disposition home or self-care (01) ==
LOC: EDUNIT# 10:30 → ER 10:35
DX: N45.1 Epididymitis (principal); F17.210 Nicotine dependence, cigarettes, uncomplicated
CPT/HCPCS: 36415; 76870; 80053; 81000; 85007; 85027; 87491; 87591

== ENCOUNTER 2021-03-26 16:07 | Emergency (ER) | payer MEDICAID, OTHER ==
[~2021-03-26] VITALS: Ht 170.2 cm; Wt 61.2 kg
[2021-03-26 16:12] VITALS: BP 106/56
[2021-03-26] MEDS ORDERED: RABIES VACCINE HUMAN DIPL CELL 1 ML/2.5 UNITS SYR IM ONE (16:15)
[2021-03-26] MEDS ORDERED: RABIES IMMUNE GLOBULIN 150 UNIT/ML IM ONE ×2 (16:15)
[2021-03-26] MEDS ORDERED: TETANUS,DIPTH,PERTUSS P/F (BOOSTRIX) 0.5 ML VIAL IM ONE (16:15)
[2021-03-26] MEDS ORDERED: ALPRAZolam 0.5 MG (XANAX) TAB PO SCH (16:15)
[2021-03-26] MEDS ORDERED: AMOX-358 PO (16:19)
[2021-03-26] MEDS ORDERED: ACHD5005 PO ×2 (16:19→16:29)
--- NOTE | 2021-03-26 16:20 | ED Integumentary General ---
General Chief Complaint: Bite-Animal/Human/Insect Stated Complaint: R LEG DOG BITE Source: patient Exam Limitations: no limitations History of Present Illness Date Seen by Provider: Mar 26, 2021 Time Seen by Provider: 16:15 Initial Comments Bitten by a dog here in [place] next to [place] while he was walking down the street. His vaccine status on tetanus is not up-to-date. He does not know who owns the dog. Timing/Duration: just prior to arrival Severity: moderate Possible Cause: no cause identified Associated Symptoms: denies symptoms Allergies and Home Medications Allergies Coded Allergies: No Known Drug Allergies (Unverified Allergy, Mild, 04/05/09) Home Medications Amoxicillin/Potassium Clav 1 Each Tablet, 1 EACH PO BID Prescribed by: LAMONTE GROVER on 03/26/21 1619 Cephalexin 500 Mg Capsule, 500 MG PO TID Prescribed by: LAMONTE GROVER on 05/30/20 1839 Doxycycline Hyclate 100 Mg Tablet, 100 MG PO BID Prescribed by: LAMONTE GROVER on 11/17/19 2239 Doxycycline Hyclate 100 Mg Tablet, 100 MG PO BID Prescribed by: GUILLERMO VALENCIA on 10/19/20 1149 Hydrocodone/Acetaminophen 1 Each Tablet, 1 EACH PO Q4H Prescribed by: GUILLERMO VALENCIA on 10/19/20 1153 Hydrocodone/Acetaminophen 1 Each Tablet, 1 TAB PO Q4H PRN for PAIN-MODERATE (5- 7) Prescribed by: LAMONTE GROVER on 03/26/21 1620 Sulfamethoxazole/Trimethoprim 1 Each Tablet, 1 EACH PO BID Prescribed by: NAVNEET LOWE on 10/14/202048 Patient Home Medication List Home Medication List Reviewed: Yes Review of Systems Review of Systems Constitutional: see HPI EENTM: see HPI Respiratory: no symptoms reported Cardiovascular: no symptoms reported Genitourinary: no symptoms reported Musculoskeletal: no symptoms reported Skin: no symptoms reported Psychiatric/Neurological: No Symptoms Reported Endocrine: No Symptoms Reported Hematologic/Lymphatic: No Symptoms Reported Past Tkeokwb-Hpqfaw-Lvlcwl Hx Patient Social History Alcohol Beverage of Choice: Whiskey Drug of Choice: THC Type Used: Cigarettes 2nd Hand Smoke Exposure: Yes Recent Hopitalizations: No Immunizations Up To Date Tetanus Booster (TDap): Less than 5yrs Seasonal Allergies Seasonal Allergies: No Past Medical History Surgeries: No Respiratory: No Cardiac: No Neurological: No Reproductive Disorders: No Sexually Transmitted Disease: No Gastrointestinal: No Musculoskeletal: No Endocrine: No HEENT: No Cancer: No Psychosocial: Yes ADD/ADHD Integumentary: No Blood Disorders: No Family Medical History No Pertinent Family Hx Physical Exam Vital Signs Vital Signs - First Documented 03/26/21 16:12 Temp 36.9 Pulse 105 Resp 20 B/P (MAP) 106/56 (73) O2 Delivery Room Air Capillary Refill : General Appearance: WD/WN, no apparent distress Neck: non-tender, full range of motion Respiratory: no respiratory distress, no accessory muscle use Neurologic/Psychiatric: alert, normal mood/affect, oriented x 3 Skin: normal color, warm/dry Skin Problem Location: lower extremities, other (3 puncture wounds to the medial aspect of the right lower leg just inferior to the knee. No active blee ding. There is some exposed subcutaneous tissue. 2 of the 3 lacerations are about 2 cm, the third is just a simple puncture wound.) Progress/Results/Core Measures Results/Orders My Orders Orders - LAMONTE GROVER APRN, Pertuss(Acell),Tet Adult (Boostrix (03/26/21 16:15) Alprazolam Tablet (Xanax Tablet) (03/26/21 16:15) Rabies Vaccine Human Dipl Cell (Rabavert (03/26/21 16:15) Rabies Immune Globulin/Pf (Kedrab 300 Un (03/26/21 16:15) Rabies Immune Globulin/Pf (Kedrab 1,500 (03/26/21 16:15) Vital Signs/I&O 03/26/21 16:12 Temp 36.9 Pulse 105 Resp 20 B/P (MAP) 106/56 (73) O2 Delivery Room Air Departure Communication (Admissions) 9383-He is crying and sobbing and refuses any vaccine or injection or to allow lidocaine injection to close these wounds. We will scrub the wounds and dressed them and send him home without closing them or rabies prophylaxis. Discussed with him the risks of this and he wishes to go on home without receiving any tetanus prophylaxis rabies prophylaxis or local injection for better wound irrigation and cleansing. Police Department notified of unknown dog that had bitten him to help determine rabies status of the dog if it can be located. Impression Primary Impression: Dog bite Disposition: HOME, SELF-CARE Condition: Stable Departure-Patient Inst. Decision time for Depature: 16:17 Referrals: NO,LOCAL PHYSICIAN (PCP/Family) Primary Care Physician Patient Instructions: Animal Bites (DC) Scripts Hydrocodone/Acetaminophen (Hydrocodone-Acetamin 5-325 mg) 1 Each Tablet 1 TAB PO Q4H PRN for PAIN-MODERATE (5-7), #5 TAB do not fill unless augmentin is also filled Prov: LAMONTE GROVER APRN 03/26/21 Amoxicillin/Potassium Clav (Augmentin 875-125 Tablet) 1 Each Tablet 1 EACH PO BID, #14 TAB 0 Refills Prov: LAMONTE GROVER APRN 03/26/21 LAMONTE GROVER APRN Mar 26, 2021 16:20
== END 2021-03-26 16:41 | disposition home or self-care (01) ==
LOC: EDUNIT# 16:07 → ER 16:08
DX: S81.831A Puncture wound without foreign body, right lower leg, initial encounter (principal); Z77.22 Contact with and (suspected) exposure to environmental tobacco smoke (acute) (chronic); Z23 Encounter for immunization; Z20.3 Contact with and (suspected) exposure to rabies; W54.0XXA Bitten by dog, initial encounter; Y92.410 Unspecified street and highway as the place of occurrence of the external cause

== ENCOUNTER 2022-05-09 21:01 | Emergency (ER) | payer SELFPAY ==
[~2022-05-09 21:01] MED LIST changes: +AMOX-358 PO; -SULF1TAB35 PO; +SULF1TAB38 PO
[2022-05-09 21:14] VITALS: BP 118/79
--- NOTE | 2022-05-09 21:50 | ED Integumentary General ---
General Chief Complaint: Skin/Wound Problems Stated Complaint: R ARMPIT CYST/ABSCESS Nursing Triage Note: PT PRESENTS WITH REPORT OF ABSCESS TO RIGHT AXILLA THAT HE NOTICES YESTERDAY. AREA IS RED AND RAISED WITHOUT ANY DRAINAGE. Source: patient Exam Limitations: no limitations (LAMONTE GROVER APRN) History of Present Illness Date Seen by Provider: May 09, 2022 Time Seen by Provider: 21:45 Initial Comments Tender nodule under right axilla starting today Timing/Duration: just prior to arrival Severity: moderate Location: extremities Possible Cause: no cause identified Associated Symptoms: denies symptoms (LAMONTE GROVER APRN) Allergies and Home Medications Allergies Coded Allergies: No Known Drug Allergies (Unverified , 04/05/09) Patient Home Medication List Home Medication List Reviewed: Yes (LAMONTE GROVER APRN) Amoxicillin/Potassium Clav (Augmentin 875-125 Tablet) 1 Each Tablet, 1 EACH PO BID Prescribed by: LAMONTE GROVER on 03/26/21 1619 Cephalexin (Keflex) 500 Mg Capsule, 500 MG PO TID Prescribed by: LAMONTE GROVER on 05/30/20 1839 Doxycycline Hyclate (Doxycycline Hyclate) 100 Mg Tablet, 100 MG PO BID Prescribed by: LAMONTE GROVER on 11/17/19 2239 Doxycycline Hyclate (Doxycycline Hyclate) 100 Mg Tablet, 100 MG PO BID Prescribed by: GUILLERMO VALENCIA on 10/19/20 1149 Doxycycline Hyclate (Doxycycline Hyclate) 100 Mg Tablet, 100 MG PO BID Prescribed by: LAMONTE GROVER on 05/09/22 2155 Last Action: New Order Hydrocodone/Acetaminophen (Hydrocodone-Acetamin 5-325 mg) 1 Each Tablet, 1 EACH PO Q4H Prescribed by: GUILLERMO VALENCIA on 10/19/20 1153 Hydrocodone/Acetaminophen (Hydrocodone-Acetamin 5-325 mg) 1 Each Tablet, 1 TAB PO Q4H PRN for PAIN-MODERATE (5-7) Prescribed by: LAMONTE GROVER on 03/26/21 1630 Sulfamethoxazole/Trimethoprim (Bactrim Ds Tablet) 1 Each Tablet, 1 EACH PO BID Prescribed by: NAVNEET LOWE on 10/14/202048 Review of Systems Review of Systems Constitutional: see HPI EENTM: see HPI Respiratory: no symptoms reported Cardiovascular: no symptoms reported Genitourinary: no symptoms reported Musculoskeletal: no symptoms reported Skin: no symptoms reported Psychiatric/Neurological: No Symptoms Reported Endocrine: No Symptoms Reported Hematologic/Lymphatic: No Symptoms Reported (LAMONTE GROVER APRN) Past Gnntzks-Dyhpwt-Lglrlf Hx Patient Social History Tobacco Use?: Yes Smoking Status: Current Everyday Smoker Substance use?: Yes Substance type: Marijuana Alcohol Use?: No Pt feels they are or have been: No (LAMONTE GROVER APRN) Immunizations Up To Date Tetanus Booster (TDap): Less than 5yrs Influenza Vaccine Up-to-Date: No; Not Current (LAMONTE GROVER APRN) Seasonal Allergies Seasonal Allergies: No (LAMONTE GROVER APRN) Past Medical History Surgeries: No Respiratory: No Cardiac: No Neurological: No Reproductive Disorders: No Sexually Transmitted Disease: No Gastrointestinal: No Musculoskeletal: No Endocrine: No HEENT: No Cancer: No Psychosocial: Yes ADD/ADHD Integumentary: No Blood Disorders: No (LAMONTE GROVER APRN) Family Medical History No Pertinent Family Hx (LAMONTE GROVER APRN) Physical Exam Vital Signs Vital Signs - First Documented 05/09/22 21:14 Pulse 84 Resp 18 B/P (MAP) 118/79 (92) Pulse Ox 98 O2 Delivery Room Air (ELIZABETH KAUFFMAN MD) Vital Signs Capillary Refill : (LAMONTE GROVER APRN) General Appearance: WD/WN, no apparent distress HEENT: PERRL/EOMI, normal ENT inspection Neck: non-tender, full range of motion Respiratory: no respiratory distress, no accessory muscle use Neurologic/Psychiatric: alert, normal mood/affect, oriented x 3 Skin: normal color, warm/dry Skin Problem Character: other (Tender half centimeter erythematous nodule right axilla no fluctuance no drainage) (LAMONTE GROVER APRN) Progress/Results/Core Measures Results/Orders Vital Signs/I&O 05/09/22 21:14 Pulse 84 Resp 18 B/P (MAP) 118/79 (92) Pulse Ox 98 O2 Delivery Room Air (ELIZABETH KAUFFMAN MD) Blood Pressure Mean: 92 Departure Impression Primary Impression: Soft tissue infection Disposition: 01 HOME, SELF-CARE Condition: Stable Departure-Patient Inst. Decision time for Depature: 21:50 (LAMONTE GROVER APRN) Referrals: NO,LOCAL PHYSICIAN (PCP/Family) Primary Care Physician Patient Instructions: Wound Infection Add. Discharge Instructions: 1. Return to ER for any concerns. Warm compresses to the area. All discharge instructions reviewed with patient and/or family. Voiced understanding. Scripts Doxycycline Hyclate (Doxycycline Hyclate) 100 Mg Tablet 100 MG PO BID, #10 TAB 0 Refills Prov: LAMONTE GROVER APRN 05/09/22 ATTENDING PHYSICIAN NOTE: I was physically present as attending physician in the emergency department during the care of this patient, but I was not directly involved in the decision making or delivery of care for this patient. (ELIZABETH KAUFFMAN MD) LAMONTE GROVER APRN May 09, 2022 21:50 ELIZABETH KAUFFMAN MD May 11, 2022 07:00
[2022-05-09] MEDS ORDERED: DOXY100T2 PO (21:55)
[2022-05-09] MEDS ORDERED: MUPIROCIN 2% OINT 22 GM (BACTROBAN) TUBE ONE (21:58)
[2022-05-09] MEDS ORDERED: DOXYCYCLINE 100 MG (VIBRAMYCIN) TABLET PO SCH (22:00)
[2022-05-10] MEDS ORDERED: MUPIROCIN 2% OINT 22 GM (BACTROBAN) TUBE TOP SCH (09:00)
== END 2022-05-09 22:03 | disposition home or self-care (01) ==
LOC: EDUNIT# 21:01 → ER 21:02
DX: L02.411 Cutaneous abscess of right axilla (principal); F17.210 Nicotine dependence, cigarettes, uncomplicated; Z28.310 Unvaccinated for COVID-19
CPT/HCPCS: 99283